=== PATIENT | male | born 1940 | race Caucasian/White ===

== ENCOUNTER 2020-05-20 11:03 | Emergency (ER) | payer OTHER, MEDICARE ==
[2020-05-20] MEDS ORDERED: Sodium Chloride 0.9% 10 ML Syringe FLUSH PRN (11:28)
[2020-05-20] MEDS ORDERED: Calcium Gluconate 10% 1 GM/10 ML SDV IVPUSH ONE (11:41)
[2020-05-20 12:10] LABS: ANION GAP 14.8 mEq/L (7-13); CHLORIDE,CL 103 mmol/L (98-107); SODIUM,NA 137 mmol/L (136-145)
--- NOTE | 2020-05-20 12:17 | EDM.PDOC ---
ED HPI GENERAL MEDICAL PROBLEM - General Chief Complaint: General Stated Complaint: [facility] Time Seen by Provider: 05/20/20 11:20 Source of Information: Reports: Patient History Limitations: Reports: No Limitations - History of Present Illness INITIAL COMMENTS - FREE TEXT/NARRATIVE: Patient comes emergency department today as he was directed to from the [facility] with concerns of hyperkalemia. This patient just a couple of days ago had a lab draw for a pre-work-up for nephrology appointment next week. They noted during the night that his potassium was elevated at 6.0. He was contacted by the [facility] and told to go emergently to the ER for evaluation of his hyperkalemia. He has had an episode of hyperkalemia this summer. He received some IV fluids and was discharged home. He does have an appointment with nephrology next week through telehealth. Over the past couple of days he has felt normal. He has no weakness dizziness lightheadedness. No syncope. No chest pain difficulty breathing cough or congestion. He does complain of chronic leg pain with extended periods of ambulation which sound like intermittent claudication that resolves upon sitting. He has no abdominal pain nausea or vomiting. He has been eating and drinking appropriately. He has been taking his medications as prescribed. He chronically has swelling in his lower extremities more on the left than the right and is about at baseline. No COVID exposure no COVID symptoms. - Related Data Allergies Allergy/AdvReac Type Severity Reaction Status Date / Time budesonide [From Symbicort] Allergy Cannot Verified 05/20/20 11:23 Remember chlorthalidone Allergy Cannot Verified 05/20/20 11:23 Remember formoterol [From Symbicort] Allergy Cannot Verified 05/20/20 11:23 Remember furosemide Allergy Cannot Verified 05/20/20 11:23 Remember hydrochlorothiazide Allergy Cannot Verified 05/20/20 11:23 Remember nifedipine Allergy Cannot Verified 05/20/20 11:23 Remember Home Meds: Home Meds Albuterol [Proair HFA] 2 puff INH Q6HR PRN 05/20/20 [History] Allopurinol [Zyloprim] 300 mg PO DAILY 05/20/20 [History] Ascorbic Acid [C-1000] 1,000 mg PO DAILY 05/20/20 [History] Budesonide/Formoterol Fumarate [Budesonide-Formoterol 160-4.5] 2 puff INH BID 05/20/20 [History] Bumetanide [Bumex] 1 mg PO DAILY 05/20/20 [History] Cholecalciferol (Vitamin D3) [Vitamin D3] 5,000 unit PO DAILY 05/20/20 [History] Diltiazem HCl [Diltiazem 24Hr Cd] 240 mg PO DAILY 05/20/20 [History] Ferrous Sulfate 325 mg PO DAILY 05/20/20 [History] Finasteride 5 mg PO DAILY 05/20/20 [History] Magnesium Oxide 250 mg PO DAILY 05/20/20 [History] Multivitamin with Minerals [Multiple Vitamin] 1 tab PO DAILY 05/20/20 [History] Mupirocin Oint [Bactroban Oint] 22 gm TP ASDIRECTED 05/20/20 [History] Naproxen Sodium 220 mg PO ASDIRECTED PRN 05/20/20 [History] Omeprazole 20 mg PO BIDAC 05/20/20 [History] Rosuvastatin Calcium 10 mg PO BEDTIME 05/20/20 [History] Spironolactone [Aldactone] 50 mg PO ASDIRECTED 05/20/20 [History] Tiotropium [Spiriva] 2 puff INH DAILY 05/20/20 [History] Ubidecarenone [Coenzyme Q10] 100 mg PO DAILY 05/20/20 [History] Zinc Gluconate [Zinc] 50 mg PO DAILY 05/20/20 [History] Past Medical History HEENT History: Reports: Hard of Hearing Cardiovascular History: Reports: High Cholesterol, Hypertension, PVD, Other (See Below) Other Cardiovascular History: IAN carotid artery stenosis, aortic stenosis, Aortic valve sclerosis EF 55-60% on 09/16/13, IAN LE edema Respiratory History: Reports: COPD Gastrointestinal History: Reports: Cirrhosis, Colon Polyp, Other (See Below) Other Gastrointestinal History: Esophageal varices, Genitourinary History: Reports: Other (See Below) Other Genitourinary History: Benign prostatic hyperplasia Musculoskeletal History: Reports: Back Pain, Chronic, Gout, Other (See Below) Other Musculoskeletal History: bursitis of hip, IAN hip joint pain, IAN lower leg joint pain Neurological History: Reports: None Psychiatric History: Reports: Addiction Endocrine/Metabolic History: Reports: Obesity/BMI 30+ Hematologic History: Reports: Anemia Immunologic History: Reports: Other (See Below) Other Immunologic History: enlarged lymph nodes Oncologic (Cancer) History: Reports: Lung Dermatologic History: Reports: Other (See Below) Other Dermatologic History: IAN LE edmema - Infectious Disease History Infectious Disease History: Reports: None - Past Surgical History Head Surgeries/Procedures: Reports: None HEENT Surgical History: Reports: Adenoidectomy, Tonsillectomy GI Surgical History: Reports: Appendectomy Male Surgical History: Reports: Circumcision, Vasectomy Oncologic Surgical History: Reports: Lobectomy, Other (See Below) Other Oncologic Surgeries/Procedures: Right lobectomy Social & Family History - Family History Family Medical History: Noncontributory - Tobacco Use Smoking Status *Q: Former Smoker Used Tobacco, but Quit: Yes Month/Year Tobacco Last Used: 2019 - Caffeine Use Caffeine Use: Reports: Coffee - Alcohol Use Days Per Week of Alcohol Use: 7 Number of Drinks Per Day: 1 Total Drinks Per Week: 7 - Recreational Drug Use Recreational Drug Use: No ED ROS GENERAL - Review of Systems Review Of Systems: Comprehensive ROS is negative, except as noted in HPI. ED EXAM, GENERAL - Physical Exam Exam: See Below Exam Limited By: No Limitations General Appearance: Alert, WD/WN, No Apparent Distress Eye Exam: Bilateral Eye: EOMI, PERRL Ears: Normal External Exam Nose: Normal Inspection Throat/Mouth: Normal Inspection Head: Atraumatic, Normocephalic Neck: Normal Inspection, Supple, Non-Tender, Full Range of Motion. No: Carotid Bruit Respiratory/Chest: No Respiratory Distress, Lungs Clear, Normal Breath Sounds, No Accessory Muscle Use, Chest Non-Tender Cardiovascular: Normal Peripheral Pulses, Regular Rate, Rhythm, No Murmur, Bradycardia Peripheral Pulses: 1+: Posterior Tibial (L), Posterior Tibial (R), Dorsalis Pedis (L), Dorsalis Pedis (R), 2+: Radial (L), Radial (R) GI/Abdominal: Normal Bowel Sounds, Soft, Non-Tender, No Distention (Male) Exam: Deferred Rectal (Males) Exam: Deferred Back Exam: Normal Inspection, Full Range of Motion Extremities: Normal Range of Motion, Non-Tender, Normal Capillary Refill. No: Normal Inspection (he has 2-3+ edema to the LLE and 1+ to the RLE. He does have lichineficaiton of both lower extremities left more than right. No tenderness to the calves. ) Neurological: Alert, Oriented, Normal Cognition, Normal Gait, No Motor/Sensory Deficits Psychiatric: Normal Affect, Normal Mood Skin Exam: Warm, Dry, Intact, Normal Color, No Rash EKG INTERPRETATION EKG Date: 05/20/20 Time: 11:35 Rhythm: Other (Junctional escape) Rate (Beats/Min): 52 [place]: Normal P-Wave: Absent QRS: Normal ST-T: Normal QT: Normal Comparison: Change From Previous EKG (None available here for EKG. [facility] a NSR>) Course - Vital Signs Last Recorded V/S: Last Vital Signs Temp 97.2 F 05/20/20 11:30 Pulse 54 L 05/20/20 11:30 Resp 16 05/20/20 11:30 BP 141/57 H 05/20/20 11:30 Pulse Ox 99 05/20/20 11:30 - Orders/Labs/Meds Orders: Active Orders 24 hr Category Date Time Status EKG Documentation Completion [RC] STAT Care 05/20/20 11:24 Active Peripheral IV Care [RC] . DIRECTED Care 05/20/20 11:28 Active Sodium Chloride 0.9% [Saline Flush] Med 05/20/20 11:28 Active 10 ml FLUSH ASDIRECTED PRN Peripheral IV Insertion Adult [OM.PC] Stat Oth 05/20/20 11:28 Ordered Medication Orders Sodium Chloride (Saline Flush) 10 ml FLUSH ASDIRECTED PRN PRN Reason: Keep Vein Open Last Admin: 05/20/20 12:23 Dose: 10 ml Documented by: MARY ALICE Labs: Laboratory Tests 05/20/20 05/20/20 05/20/20 Range/Units 11:29 11:38 11:38 WBC 9.0 (5.0-10.0) 10^3/uL RBC 4.06 L (4.6-6.2) 10^6/uL Hgb 13.5 L (14.0-18.0) g/dL Hct 39.9 L (40.0-54.0) % MCV 98.3 (80-100) fL MCH 33.3 (27.0-34.0) pg MCHC 33.8 (33.0-35.0) g/dL Plt Count 167 (150-450) 10^3/uL Neut % (Auto) 52.8 (42.2-75.2) % Lymph % (Auto) 31.6 (20.5-50.1) % [place] % (Auto) 14.3 H (2-8) % Eos % (Auto) 1.1 (1.0-3.0) % Baso % (Auto) 0.2 (0.0-1.0) % Sodium 137 (136-145) mmol/L Potassium 5.8 H (3.5-5.1) mmol/L Chloride 103 (98-107) mmol/L Carbon Dioxide 25 (21-32) mmol/L Anion Gap 14.8 H (7-13) mEq/L BUN 52 H (7-18) mg/dL Creatinine 2.35 H (0.70-1.30) mg/dL Est Cr Clr Drug Dosing TNP Estimated GFR (MDRD) 27 Glucose 85 (74-99) mg/dL Calcium 9.5 (8.5-10.1) mg/dL Troponin I < 0.017 (0.000-0.056) ng/mL Urine Color Yellow (YELLOW) Urine Appearance Clear (CLEAR) Urine pH 5.5 (5.0-9.0) Ur Specific [place] 1.015 (1.005-1.030) Urine Protein Negative (NEGATIVE) Urine Glucose (UA) Negative (NEGATIVE) Urine Ketones Negative (NEGATIVE) Urine Occult Blood Negative (NEGATIVE) Urine Nitrite Negative (NEGATIVE) Urine Bilirubin Negative (NEGATIVE) Urine Urobilinogen 0.2 (0.2-1.0) mg/dL Ur Leukocyte Esterase Negative (NEGATIVE) Meds: Medications Generic Name Dose Route Start Last Admin Trade Name Frefloyd PRN Reason Stop Dose Admin Sodium Chloride 10 ml 05/20/20 11:28 05/20/20 12:23 Saline Flush FLUSH 10 ml ASDIRECTED PRN Administration Keep Vein Open Discontinued Medications Generic Name Dose Route Start Last Admin Trade Name Freq PRN Reason Stop Dose Admin Calcium Gluconate 1 gm 05/20/20 11:41 05/20/20 12:24 Calcium Gluconate IVPUSH 05/20/20 11:42 1 gm ONETIME ONE Administration Dextrose/Water 50 ml 05/20/20 12:26 05/20/20 12:32 Dextrose 50% In Water IVPUSH 05/20/20 12:27 50 ml ONETIME ONE Administration Insulin Human Regular 10 unit 05/20/20 12:25 05/20/20 12:37 Humulin R IV 05/20/20 12:26 10 units ONETIME ONE Administration Sodium Bicarbonate 50 meq 05/20/20 12:45 05/20/20 13:03 Sodium Bicarbonate 8.4% IVPUSH 05/20/20 12:46 50 meq ONETIME ONE Administration Sodium Polystyrene Sulfonate 30 gm 05/20/20 12:27 05/20/20 12:38 Kayexalate PO 05/20/20 12:28 30 gm ONETIME ONE Administration - Re-Assessments/Exams Free Text/Narrative Re-Assessment/Exam: 05/20/20 12:16 IV established EKG with Junctional escape rhythm Calcium Gluconate IVP. Labs drawn. Potassium 5.8. Clearly this patient needs to come off his Spironolactone. Ca Gluconate Sodium bicarb Insulin Dextrose. His heart rate did improve to the 70s after the above with some rare P waves. Kayexalate 30grams po. I called and spoke with Dr. Davis at [facility] in [place]. HPI ER COURSE findings and concerns and medications were relayed to him and his asymptomatic bradycardia with a junctional escape rhythm. Guidance at this time is to stop diltiazem and start amlodipine. Agrees with the spironolactone and have follow up with PCP in a week. I will augment a little have his labs rechecked tomorrow another dose of kayexalate tonight and have him rechecked on monday with PCP. I discussed the plan of care with the patient. He is comfortable with this plan and his questions answered. Departure - Departure Time of Disposition: 13:35 Disposition: Home, Self-Care 01 Clinical Impression: Hyperkalemia, CKD (chronic kidney disease) stage 4, GFR 15-29 ml/min, Junctional cardiac arrhythmia, Bradycardia - Discharge Information Instructions: Chronic Kidney Disease, Adult, [id number], Hyperkalemia, [id number] Referrals: PCP,Not In Area [Primary Care Provider] - Forms: ED Department Discharge Additional Instructions: Kayexalate tonight another dose. RX given. Have your labs rechecked tomorrow with PCP. Stop your Diltiazem. Stop your Spironolactone. Start Amlodipine 5mg daily. RX given to the patient. Weight yourself daily. See your PCP Monday for recheck and keep appointment with Nephrology next week. Return to the ED if new or worsening symptoms especially weakness syncope or increased weight. Check your blood pressure daily and record as well. Sepsis Event Note (ED) - Evaluation Sepsis Screening Result: No Definite Risk - Focused Exam Vital Signs: Vital Signs Temp Pulse Resp BP Pulse Ox 05/20/20 11:30 97.2 F 54 L 16 141/57 H 99 - My Orders Last 24 Hours: My Active Orders 05/20/20 11:24 EKG Documentation Completion [RC] STAT 05/20/20 11:28 Peripheral IV Care [RC] . DIRECTED Sodium Chloride 0.9% [Saline Flush] 10 ml FLUSH ASDIRECTED PRN Peripheral IV Insertion Adult [OM.PC] Stat - Assessment/Plan Last 24 Hours: My Active Orders 05/20/20 11:24 EKG Documentation Completion [RC] STAT 05/20/20 11:28 Peripheral IV Care [RC] . DIRECTED Sodium Chloride 0.9% [Saline Flush] 10 ml FLUSH ASDIRECTED PRN Peripheral IV Insertion Adult [OM.PC] Stat
[2020-05-20] MEDS ORDERED: Insulin Regular, Human 100 Units/ML 3 ML Vial IV ONE (12:25)
[2020-05-20] MEDS ORDERED: Sodium Bicarbonate 8.4% 50 MEQ/50 ML Syringe IVPUSH ONE (12:25)
[2020-05-20] MEDS ORDERED: 50% Dextrose in Water 50 ML Syringe IVPUSH ONE (12:26)
[2020-05-20] MEDS ORDERED: Sodium Polystyrene Sulfonate 15 GM/60 ML Susp 60 ML Bot PO ONE (12:27)
[2020-05-20] MEDS ORDERED: Sodium Bicarbonate 8.4% 50 MEQ/50 ML SDV IVPUSH ONE (12:45)
== END 2020-05-20 14:00 | disposition home or self-care (01) ==
LOC: DL.ED 11:03
DX: E87.5 Hyperkalemia (principal); I49.8 Other specified cardiac arrhythmias; I12.9 Hypertensive chronic kidney disease with stage 1 through stage 4 chronic kidney disease, or unspecified chronic kidney disease; N18.4 Chronic kidney disease, stage 4 (severe); E78.00 Pure hypercholesterolemia, unspecified; J44.9 Chronic obstructive pulmonary disease, unspecified; Z79.899 Other long term (current) drug therapy; Z87.891 Personal history of nicotine dependence
CPT/HCPCS: 36415; 80048; 81003; 84484; 85025; 93005; 96374; 96375; 99285-25; A9270-GY; J0610; J1815-GY